=== PATIENT | female | born 1980 | race Caucasian/White ===

== ENCOUNTER 2019-02-01 13:52 | Emergency (ER) | payer SELFPAY ==
[~2019-02-01] VITALS: Ht 162.6 cm; Wt 61.7 kg
[~2019-02-01 13:52] MED LIST: ADVIL; IBUP-44 PO
[2019-02-01 13:56] VITALS: BP 115/71
[2019-02-01] MEDS ORDERED: ONDANSETRON 4 MG ODT PO ONE (14:20)
--- NOTE | 2019-02-01 14:21 | NUR ---
38F C/O 9/10 LEFT LOWER BACK PAIN RADIATING TO LLQ PAIN X 5 DAYS. TOOK ADVIL WITH MILD RELIEF. +DIARRHEA, +MILD NAUSEA. -FEVER, -CHILLS. DENIES UTI SYMPTOMS. BS PRESENT IN ALL QUADRANTS. HX: CYST IN KIDNEY.
--- NOTE | 2019-02-01 14:22 | NUR ---
GAVE WATER TO PATIENT PER ORDERS OF [facility] [place]. PATIENT WILL TRY TO PROVIDE URINE SAMPLE.
[2019-02-01] MEDS ORDERED: HYDROcodone/APAP 5/325 MG 1 TAB TAB PO PRN (14:25)
[2019-02-01] MEDS ORDERED: DOCUSATE SODIUM 100 MG GELCAP PO PRN (14:25)
[2019-02-01] MEDS ORDERED: ACETAMINOPHEN 325 MG TAB PO PRN (14:25)
[2019-02-01] MEDS ORDERED: ONDANSETRON 4 MG/2 ML VIAL IM/IVP PRN (14:25)
[2019-02-01] MEDS ORDERED: cefTRIAXone 500 MG in LIDOCAINE MPF 1% - 5 mL VIAL 1 ML IM ONE (14:35)
[2019-02-01 15:09] VITALS: BP 110/73
== END 2019-02-01 15:09 | disposition home or self-care (01) ==
LOC: MED 13:52
DX: N39.0 Urinary tract infection, site not specified (principal); R19.7 Diarrhea, unspecified; Z79.899 Other long term (current) drug therapy; Z98.890 Other specified postprocedural states
CPT/HCPCS: 81002; 81025; 96372; 99283; J0696; J2001; Q0162

== ENCOUNTER 2019-02-11 01:10 | Emergency (ER) | payer SELFPAY ==
[~2019-02-11] VITALS: Ht 157.5 cm; Wt 61.7 kg
[2019-02-11 01:23] VITALS: BP 119/44
--- NOTE | 2019-02-11 01:23 | NUR ---
PT TAKEN TO BED 8
--- NOTE | 2019-02-11 01:30 | NUR ---
Dr. Alfaro examining patient.
--- NOTE | 2019-02-11 01:30 | NUR ---
38 Y/O FEMALE PRESENTS TO ED, C/O LEFT ABDOMINAL ACHING PAIN 02/20. PT STATES, PAIN STARTED 1 WEEK AGO, RADIATES FROM LLQ TO L FLANK. BOWEL SOUNDS ACTIVE ON ALL QUADRANTS, ABDOMEN SOFT AND TENDER WITH PAIN ON PALPATION ON LLQ. NO NVD. PT C/O BURNING PAIN URINATING. NO MEDICAL HX. PT VSS. DR STANTON AWARE. WILL CONTINUE TO MONITOR.
[2019-02-11 01:41] LABS: APPEARANCE,URINE SL CLOUDY (CLEAR); BILIRUBIN,URINE NEGATIVE (NEGATIVE); BLOOD, URINE NEGATIVE (NEGATIVE); COLOR,URINE YELLOW (YELLOW); LEUKOCYTE ESTERASE ,URINE TRACE (NEGATIVE); NITRITE, URINE NEGATIVE (NEGATIVE); PH,URINE 7.5 (5.0-9.0); UGLUCOSE NEGATIVE (NEGATIVE)
[2019-02-11 01:59] LABS: RBC,URINE 0-5 /HPF (0-5); WBC,URINE 0-5 /HPF (0-5)
[2019-02-11 02:00] LABS: URINE AMORPHOUS URATE 4+ /HPF (None Seen)
--- NOTE | 2019-02-11 02:46 | NUR ---
Note edwardo in EDM - 02/11/19 at 0400 by [email or web address] PT C/O ANXIETY ATTACK. REQUESTED TO TAKE OWN RX OF XANAX. DR STANTON INFORMED AND GAVE APPROVAL FOR PT TO TAKE PRESCRIBED MEDICATION. WILL CONTINUE TO MONITOR.
[2019-02-11] MEDS ORDERED: LACTULOSE 20 GM/30 ML UDC PO ONE (03:05)
[2019-02-11 03:50] VITALS: BP 121/66
--- NOTE | 2019-02-11 03:50 | NUR ---
PT DISCHARGED WITH PAPERWORK. RX LACTULOSE. EDUCATED PT REGARDING MEDICATION AND SIDE EFFECTS. EDUCATED PT REGARDING DISCHARGE DIAGNOSIS. PT VERBALIZED UNDERSTANDING OF TEACHING. PT VSS. TOLD PT TO FOLLOW UP WITH PCP AND WHEN TO RETURN TO ED.
[2019-02-11] MEDS ORDERED: LACTULOSE 20 GM/30 ML UDC ONE (03:54)
== END 2019-02-11 03:50 | disposition home or self-care (01) ==
LOC: MED 01:10
DX: K59.00 Constipation, unspecified (principal); R30.9 Painful micturition, unspecified; Z79.1 Long term (current) use of non-steroidal anti-inflammatories (NSAID)
CPT/HCPCS: 74018; 81001; 81025; 99284; Q0092

== ENCOUNTER 2019-09-17 16:30 | Emergency (ER) | payer MEDICAID ==
[~2019-09-17] VITALS: Ht 154.9 cm; Wt 63.5 kg
[2019-09-17 16:45] VITALS: BP 131/86
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
--- NOTE | 2019-09-17 19:04 | NUR ---
Pt report given to MARTINA LIMA. Transfer of care at this time.
--- NOTE | 2019-09-17 19:12 | NUR ---
Kylee brooke in ED - 09/17/19 at 1924 by ELLA PT WAS NOT IN HER BED AT SHIFT CHANGE. PT LEFT WITHOUT BEING SEEN.
--- NOTE | 2019-09-17 19:12 | NUR ---
RECEIVED REPORT FROM CLARENCE BREAUX.
--- NOTE | 2019-09-17 19:24 | NUR ---
DR TYLER DISCHARGED PT. TEACHING AND INSTRUCTIONS GIVEN BY HARVINDER.
== END 2019-09-17 19:24 | disposition home or self-care (01) ==
LOC: MED 16:30
DX: S00.531A Contusion of lip, initial encounter (principal); Z79.899 Other long term (current) drug therapy; X58.XXXA Exposure to other specified factors, initial encounter; Y93.89 Activity, other specified; Y92.89 Other specified places as the place of occurrence of the external cause; Y99.8 Other external cause status
CPT/HCPCS: 99281

== ENCOUNTER 2022-04-04 16:56 | Emergency (ER) | payer MEDICAID, OTHER ==
[~2022-04-04] VITALS: Ht 160 cm; Wt 71.2 kg
[2022-04-04 17:04] VITALS: BP 111/72
[2022-04-04] MEDS ORDERED: IBUPROFEN 800 MG TAB PO ONE (17:30)
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
--- NOTE | 2022-04-04 20:44 | NUR ---
Patient discharged with v/s stable. Written and verbal after care instructions given and explained. Patient verbalized understanding. Ambulatory with steady gait. All questions addressed prior to discharge. Advised to follow up with PMD.
--- NOTE | 2022-04-09 08:43 | NUR ---
LATE ENTRY- IV VANCOCIN DISCONTINUED AT 2043.
== END 2022-04-04 20:44 | disposition home or self-care (01) ==
LOC: MED 16:56
DX: R07.89 Other chest pain (principal); M54.6 Pain in thoracic spine; M54.2 Cervicalgia; V49.88XA Car occupant (driver) (passenger) injured in other specified transport accidents, initial encounter; Y93.89 Activity, other specified; Y92.89 Other specified places as the place of occurrence of the external cause; Y99.8 Other external cause status
CPT/HCPCS: 71045; 72050; 72072; 81002; 81025; 99284

== ENCOUNTER 2024-02-26 17:16 | Emergency (ER) | payer MEDICAID ==
[~2024-02-26] VITALS: Ht 160 cm; Wt 70.9 kg
[2024-02-26 17:28] VITALS: BP 135/71; PULSE 73; RESP 18; TEMP 98; O2SAT 100
[2024-02-26] MEDS: ACETAMINOPHEN 325 MG TAB PO ONE (19:05)
[2024-02-26] MEDS: KETOROLAC 30 MG/ML VIAL IM ONE (19:06)
[2024-02-26 19:29] VITALS: BP 154/75; PULSE 70; RESP 16; O2SAT 99
[2024-02-26 19:36] LABS: BASOPHILS # (AUTO) 0.1 K/uL (0.00-0.22); BASOPHILS % (AUTO) 0.7 % (0.0-2.0); EOSINOPHILS # (AUTO) 0.1 K/uL (0-0.4); EOSINOPHILS % (AUTO) 1.3 % (0.0-4.0); HEMATOCRIT 32.6 % (36-48); HEMOGLOBIN 10.3 g/dL (12.0-16.0); LYMPHOCYTES # (AUTO) 2.8 K/uL (2.5-16.5); LYMPHOCYTES % (AUTO) 36.8 % (20.5-51.1); MEAN CORPUSCULAR HEMOGLOBIN 23 pg (27-31); MEAN CORPUSCULAR HGB CONC 32 g/dL (33-37); MEAN CORPUSCULAR VOLUME 72.1 fL (80-94); MONOCYTES # (AUTO) 0.4 K/uL (0.8-1.0); NEUTROPHILS # (AUTO) 4.1 K/uL (1.8-7.7); NEUTROPHILS % (AUTO) 55.2 % (42.2-75.2); PLATELET COUNT (AUTO) 346 K/uL (140-450); RED BLOOD CELL COUNT(AUTO) 4.52 MIL/uL (4.20-5.40); RED CELL DISTRIBUTION WIDTH 19.9 % (11.6-13.7); WHITE BLOOD COUNT (AUTO) 7.5 K/uL (4.8-10.8)
[2024-02-26 19:57] LABS: ALBUMIN 3.8 g/dL (3.4-5.0); BILIRUBIN,DIRECT 0.1 mg/dL (0.0-0.3); TOTAL BILIRUBIN 0.4 mg/dL (0.0-1.0); TOTAL PROTEIN, SERUM 7.8 g/dL (6.4-8.2)
[2024-02-26 20:00] LABS: ANION GAP 13.5 (8-16); CARBON DIOXIDE 25.1 mmol/L (21-32); CREATININE 0.7 mg/dL (0.6-1.3); POTASSIUM 3.6 mmol/L (3.5-5.1)
[2024-02-26 20:01] LABS: APPEARANCE,URINE CLEAR (CLEAR); BILIRUBIN,URINE NEGATIVE (NEGATIVE); BLOOD, URINE NEGATIVE (NEGATIVE); COLOR,URINE YELLOW (YELLOW); LEUKOCYTE ESTERASE ,URINE NEGATIVE (NEGATIVE); NITRITE, URINE NEGATIVE (NEGATIVE); PH,URINE 6.5 (5.0-9.0); PROTEIN,URINE NEGATIVE (NEGATIVE); UGLUCOSE NEGATIVE (NEGATIVE); UROBILINOGEN,URINE 0.2 EU/dL (0.2 - 1)
== END 2024-02-26 22:05 | disposition home or self-care (01) ==
LOC: MED 17:16
DX: K57.90 Diverticulosis of intestine, part unspecified, without perforation or abscess without bleeding (principal); D64.9 Anemia, unspecified; Z79.1 Long term (current) use of non-steroidal anti-inflammatories (NSAID)
CPT/HCPCS: 36415; 74176; 80048; 80076; 81003; 81025; 83690; 85025; 96372; 99285; J1885